=== PATIENT | male | born 1940 | race Caucasian/White ===

== ENCOUNTER → 2018-07-29 | Outpatient (CLI) | payer MEDICARE, BC ==
[2018-07-29 11:05] LABS: Albumin 3.7 g/dL (3.5-5.0); Calcium 8.5 mg/dL (8.4-10.2); Potassium 4.7 mmol/L (3.5-5.1); Total Bilirubin 1.3 mg/dL (0.2-1.3); Total Protein 6.1 g/dL (6.3-8.2)
--- NOTE | 2018-07-29 13:35 | CT ---
EXAMINATION TYPE: CT abdomen pelvis w con DATE OF EXAM: 07/29/2018 COMPARISON: None HISTORY: Unspecified abdominal pain CT DLP: 1430 mGycm CONTRAST: CT scan of the abdomen and pelvis is performed with Oral Contrast and with IV Contrast, patient injec mary with 100 ml mL of Isovue 300. FINDINGS: LUNG BASES-: No visible nodule. No infiltrate. Left basilar pleural thickening and small pleural eff usion. LIVER/GB: No calcified gallstones. No space occupying hepatic lesion. Biliary tree is of normal ca liber. PANCREAS: No inflammation. No distinct mass. SPLEEN: No splenic enlargement. No lesion seen. ADRENALS: No nodule. No thickening. KIDNEYS/BLADDER: No hydronephrosis. No nephrolithiasis. No distinct solid renal mass. Renal cysti c changes noted. Left renal cyst measuring 6.4 cm. Urinary bladder grossly unremarkable. BOWEL: Fixed hiatal hernia noted moderate in size. Normal appendix. Normal bowel caliber. No inflam mation. Sigmoid diverticulosis without diverticulitis. GENITAL ORGANS: No gross abnormality. LYMPH NODES: No greater than 1cm abdominal or pelvic lymph nodes are appreciated. AORTA: No significant abnormality. OSSEOUS STRUCTURES: Degenerative changes lumbar spine with a grade 1 retrolisthesis L2 on L3. OTHER: Left inguinal fat-containing hernia. IMPRESSION: 1. 5.0 x 3.9 cm fat-containing left inguinal hernia. 2. Moderate fixed hiatal hernia. 3. Left basilar pleural thickening and small effusion.
== END | disposition home or self-care (01) ==
LOC: RADCTMAIN 10:12
PROVIDERS: ATTEND Internal Medicine Cardiovascular Disease
DX: K40.90 Unilateral inguinal hernia, without obstruction or gangrene, not specified as recurrent (principal); K44.9 Diaphragmatic hernia without obstruction or gangrene; I10 Essential (primary) hypertension
CPT/HCPCS: 80053; 74177; 36415; Q9967

== ENCOUNTER → 2019-12-24 | Outpatient (CLI) | payer MEDICARE, BC ==
--- NOTE | 2019-12-25 17:36 | ECHOF ---
Referral Reason:I10 HTN, R09.89 Carotid Bruit MEASUREMENTS -------- HEIGHT: 180.3 cm WEIGHT: 99.8 kg BP: IVSd: 1.7 cm (0.6 - 1.1) LVIDd: 4.5 cm (3.9 - 5.3) LVPWd: 1.9 cm (0.6 - 1.1) IVSs: 2.4 cm LVIDs: 3.0 cm LVPWs: 1.5 cm RVIDd: 3.0 cm (< 3.3) LAESV Index (A-L): 31.80 ml/m Ao Diam: 3.4 cm (2.0 - 3.7) LA Diam: 4.3 cm (2.7 - 3.8) AV Cusp: 2.0 cm (1.5 - 2.6) EPSS: 0.9 cm MV E Luis Angel: 0.80 m/s MV DecT: 294 ms MV A Luis Angel: 1.09 m/s MV E/A Ratio: 0.73 RAP: 5.00 mmHg RVSP: 26.27 mmHg MV EF SLOPE: 57.00 mm/s (70 - 150) MV EXCURSION: 16.01 mm (> 18.000) FINDINGS -------- Sinus rhythm. This was a technically adequate study. The left ventricular size is normal. There is moderate concentric left ventricular hypertrophy. O verall left ventricular systolic function is normal with, an EF between 55 - 60 %. The diastolic fi lling pattern is normal for the age of the patient 14.88. The right ventricle is normal in size. LA is midly dilated 29-33ml/m2. The right atrial size is normal. Interatrial and interventricular septum intact. The aortic valve is trileaflet and appears structurally normal. Trace amount of aortic regurgitatio n. There is no evidence of aortic stenosis. Mild mitral regurgitation is present. Mild tricuspid regurgitation present. There is no evidence of pulmonary hypertension. The right v entricular systolic pressure, as measured by Doppler, is 26.27mmHg. Trace/mild (physiologic) pulmonic regurgitation. The aortic root size is normal. IVC Not well visulized. There is no pericardial effusion. CONCLUSIONS -------- 1. Sinus rhythm. 2. This was a technically adequate study. 3. The left ventricular size is normal. 4. There is moderate concentric left ventricular hypertrophy. 5. Overall left ventricular systolic function is normal with, an EF between 55 - 60 %. 6. The diastolic filling pattern is normal for the age of the patient 14.88 7. The right ventricle is normal in size. 8. LA is midly dilated 29-33ml/m2. 9. The right atrial size is normal. 10. Interatrial and interventricular septum intact. 11. The aortic valve is trileaflet and appears structurally normal. 12. Trace amount of aortic regurgitation. 13. There is no evidence of aortic stenosis. 14. Mild mitral regurgitation is present. 15. Mild tricuspid regurgitation present. 16. There is no evidence of pulmonary hypertension. 17. The right ventricular systolic pressure, as measured by Doppler, is 26.27mmHg. 18. Trace/mild (physiologic) pulmonic regurgitation. 19. The aortic root size is normal. 20. IVC Not well visulized. 21. There is no pericardial effusion. [employer]IN PLANT SWEATER OPERATOR: Roxanne Ramirez RDCS
--- NOTE | 2019-12-25 19:13 | US ---
EXAMINATION TYPE: US carotid duplex BILAT DATE OF EXAM: 12/24/2019 COMPARISON: NONE CLINICAL HISTORY: I10 HTN, R09.89 Carotid Bruit. EXAM MEASUREMENTS: RIGHT: Peak Systolic Velocity (PSV) cm/sec ----- Right CCA: 64.4 ----- Right ICA: 60.3 ----- Right ECA: 89.7 ICA/CCA ratio: 0.9 RIGHT: End Diastole cm/sec ----- Right CCA: 13.7 ----- Right ICA: 19.7 ----- Right ECA: 11.1 LEFT: Peak Systolic Velocity (PSV) cm/sec ----- Left CCA: 71.5 ----- Left ICA: 73.8 ----- Left ECA: 89.4 ICA/CCA ratio: 1.0 LEFT: End Diastole cm/sec ----- Left CCA: 15.3 ----- Left ICA: 26.1 ----- Left ECA: 13.5 VERTEBRALS (direction of flow): Right Vertebral: Antegrade Left Vertebral: Antegrade Rhythm: Normal Mild plaque, waveform analysis does not show significant stenosis of the proximal internal carotid ar teries. Grayscale, color Doppler, spectral Doppler imaging performed of the carotid arteries IMPRESSION: No hemodynamic significant stenosis of the proximal internal carotid arteries by Doppler criteria, an indirect measurement of carotid stenosis
== END | disposition home or self-care (01) ==
LOC: RADECHMAIN 16:13
PROVIDERS: ATTEND Internal Medicine Cardiovascular Disease
DX: I08.1 Rheumatic disorders of both mitral and tricuspid valves (principal); I10 Essential (primary) hypertension; R09.89 Other specified symptoms and signs involving the circulatory and respiratory systems
CPT/HCPCS: 93306; 93880

== ENCOUNTER → 2019-12-27 | Outpatient (CLI) | payer MEDICARE, BC ==
[2019-12-27 08:37] LABS: Basophils # (A) 0.1 k/uL (0-0.2); Basophils % (A) 2 %; Eosinophils # (A) 0.2 k/uL (0-0.7); Eosinophils % (A) 4 %; HGB 15.4 gm/dL (13.0-17.5); Lymphocytes # (A) 1.2 k/uL (1.0-4.8); Lymphocytes % (A) 26 %; MCH 34.8 pg (25.0-35.0); MCHC 32.9 g/dL (31.0-37.0); Macrocytosis Moderate; Mean Platelet Volume 7.9; Monocytes # (A) 0.3 k/uL (0-1.0); Monocytes % (A) 6 %; Neutrophils # (A) 2.7 k/uL (1.3-7.7); Neutrophils % (A) 58 %; Platelet Count 215 k/uL (150-450); RBC 4.43 m/uL (4.30-5.90); RDW 13.1 % (11.5-15.5); WBC 4.6 k/uL (3.8-10.6)
[2019-12-27 16:06] LABS: African American GFR (CKD) 55.8 (60.0-200.0); Albumin/Globulin Ratio 3.08 (1.60-3.17); BUN/Creat Ratio 10.71 Ratio (12.00-20.00); Calcium 8.2 mg/dL (8.7-10.3); Chol/HDL Ratio 2.54; Globulin 1.3 g/dL (1.6-3.3); LDL Cholesterol,Calculated 92.6 mg/dL (0.0-131.0); Non-African American GFR(CKD) 48.1 (60.0-200.0); Potassium 4.4 mmol/L (3.5-5.5); Total Protein 5.3 g/dL (6.2-8.2); VLDL Calculation 12.4 mg/dL (5.00-40.00)
== END ==
LOC: LABWHC1 07:10
PROVIDERS: ATTEND Internal Medicine Cardiovascular Disease
DX: R06.02 Shortness of breath (principal); R00.2 Palpitations
CPT/HCPCS: 36415; 80053; 80061; 84439; 84443; 84481; 85025

== ENCOUNTER → 2020-01-06 | Outpatient (CLI) | payer MEDICARE, BC ==
--- NOTE | 2020-01-06 15:59 | US ---
LOWER EXTREMITY VENOUS INSUFFICIENCY CLINICAL HISTORY: I87.2 venous insufficiency. SIDE PERFORMED: Bilateral 1) Color flow is present and patency is documented in the following vessels. No DVT or SVT is noted . EIV Common Femoral Vein Deep Femoral Vein Femoral Vein Popliteal Vein Proximal Calf Veins Greater Saph Vein Upper Small Saph Vein 2) There is venous reflux noted at the following venous levels: Right: EIV, CFV, mild in DFV Left: none IMPRESSION: Venous reflux within the right lower extremity as discussed above.
== END | disposition home or self-care (01) ==
LOC: RADUSMAIN 15:04
PROVIDERS: ATTEND Internal Medicine Cardiovascular Disease
DX: I87.8 Other specified disorders of veins (principal)
CPT/HCPCS: 93970

== ENCOUNTER → 2021-08-15 | Outpatient (CLI) | payer MEDICARE, BC ==
--- NOTE | 2021-08-15 11:27 | ECHOF ---
Referral Reason:I10 Essential hypertension; R01.1 Murmur; R06.02 MEASUREMENTS -------- HEIGHT: 180.3 cm WEIGHT: 99.8 kg BP: RVIDd: 3.2 cm (< 3.3) IVSd: 1.0 cm (0.6 - 1.1) LVIDd: 4.3 cm (3.9 - 5.3) LVPWd: 1.0 cm (0.6 - 1.1) IVSs: 1.8 cm LVIDs: 2.7 cm LVPWs: 1.6 cm LAESV Index (A-L): 17.64 ml/m Ao Diam: 3.5 cm (2.0 - 3.7) AV Cusp: 2.0 cm (1.5 - 2.6) LA Diam: 3.5 cm (2.7 - 3.8) MV EXCURSION: 17.180 mm (> 18.000) MV EF SLOPE: 80 mm/s (70 - 150) EPSS: 0.9 cm MV E Luis Angel: 0.89 m/s MV DecT: 242 ms MV A Luis Angel: 0.97 m/s MV E/A Ratio: 0.91 RAP: 5.00 mmHg RVSP: 16.30 mmHg FINDINGS -------- This was a technically difficult study with suboptimal views. The left ventricular size is normal. Left ventricular wall thickness is normal. Overall left vent ricular systolic function is normal with, an EF between 55 - 60 %. The diastolic filling pattern is normal for the age of the patient 13.67. The right ventricle is normal in size. The left atrial size is normal. Normal LA size by volume 22+/-6 ml/m2. The right atrial size is normal. xx ml of Lumason was utilized for enhancement of images. The aortic valve is trileaflet and appears structurally normal. The mitral valve is normal. There is trace mitral regurgitation. The tricuspid valve appears structurally normal. Trace tricuspid regurgitation present. Right aram tricular systolic pressure is normal at < 35 mmHg. There is no pulmonic regurgitation present. The aortic root size is normal. IVC Not well visulized. There is no pericardial effusion. CONCLUSIONS -------- 1. The left ventricular size is normal. 2. Left ventricular wall thickness is normal. 3. Overall left ventricular systolic function is normal with, an EF between 55 - 60 %. 4. The diastolic filling pattern is normal for the age of the patient 13.67 5. There is trace mitral regurgitation. 6. Trace tricuspid regurgitation present. 7. There is no pericardial effusion. STAFF ENGINEER: Roxi Altamirano RDCS
--- NOTE | 2021-08-15 11:53 | NM ---
EXAMINATION TYPE: NM stress cardiolite complete DATE OF EXAM: 08/15/2021 COMPARISON: NONE HISTORY: Murmur TECHNIQUE: After the intravenous administration of 10.1 mCi Tc 99m Sestamibi - Rest images obtained 60 minutes post injection. The patient exercised using a LORENA protocol and 1 minute prior to peak exercise was injected with 25.5 mCi Tc 99m Sestamibi - Stress images obtained 25 minutes post injecti on. FINDINGS: Targeted heart rate was achieved during performance of the study. Review of stress and rest SPECT derek ges demonstrates no distinct perfusion abnormality. Gated analysis shows normal wall motion with an estimated left ventricular ejection fraction of 64 %. IMPRESSION: No scintigraphic evidence for reversible ischemia
--- NOTE | 2021-08-15 14:10 | EST ---
EXERCISE STRESS DATE OF STUDY: 08/15/2021 AGE: 81 SEX: M HT: 5'11" WT: 220 lbs. PROTOCOL: Jonas STAGE: 3 DURATION OF EXERCISE: 8:41 HEART RATE REST: 54 BLOOD PRESSURE REST: 131/87 MAXIMUM HEART RATE ACHIEVED: 122 MAXIMUM BLOOD PRESSURE: 205/85 85% MPHR: 120 100% MPHR: 141 METS: 10.1 INDICATIONS: Chest pain. CLINICAL INFORMATION: STRESS DATA: Heart rate 54, pressure 131/87 mmHg. Baseline EKG showed sinus mechanism. The patient exercised on the treadmill according to Jonas protocol for a total of and 8 minutes and 41 seconds and achieved 10 of METS. Max heart rate was 112, which is about 87% of maximum predicted heart rate. Maximum blood pressure was 203/93 mmHg. Clinically the patient did not have any symptoms. The EKG did not show any significant ST or T-wave abnormalities concerning for ischemia. CONCLUSION: 1. Excellent exercise tolerance. 2. Normal EKG in response to exercise. MMODL / IJN: [id number] /
== END | disposition home or self-care (01) ==
LOC: RADNMMAIN 08:02
PROVIDERS: ATTEND Internal Medicine Cardiovascular Disease
DX: I08.1 Rheumatic disorders of both mitral and tricuspid valves (principal)
CPT/HCPCS: 93017; 78452; C8929; A9500; Q9950; 93306

== ENCOUNTER → 2022-05-20 | Outpatient (CLI) | payer MEDICARE, BC ==
--- NOTE | 2022-05-20 15:03 | CT ---
EXAMINATION TYPE: CT abdomen pelvis w con DATE OF EXAM: 05/20/2022 COMPARISON: CT dated 07/29/2018 HISTORY: Abdominal pain CT DLP: 2013 mGycm Automated exposure control for dose reduction was used. TECHNIQUE: Helical acquisition of images was performed from the lung bases through the pelvis. CONTRAST: Performed with Oral Contrast and with IV Contrast, patient injected with 80 mL of Isovue 300. FINDINGS: LUNG BASES: Bilateral basal peripheral pulmonary reticulations and minimal fibrotic changes. LIVER/GB: Nondistended gallbladder with suspected cholelithiasis, please correlate with ultrasound re sults. No definite hepatic focal lesion. PANCREAS: No significant abnormality is seen. SPLEEN: No significant abnormality is seen. ADRENALS: No significant abnormality is seen. KIDNEYS: Bilateral renal cysts without gross suspicious features. Bilateral perinephric fat stranding , nonspecific. FREE AIR: No free air is visualized. RETROPERITONEAL ADENOPATHY: None visualized REPRODUCTIVE ORGANS: No significant abnormality is seen URINARY BLADDER: Thickened urinary bladder wall with trabeculation which could be related to chronic urinary outflow obstruction however cystitis or underlying urothelial lesion cannot be excluded, ple ase correlate with urinalysis results. PELVIC ADENOPATHY: No pathologically enlarged pelvic lymph nodes. OSSEOUS STRUCTURES: Osteopenia. No gross aggressive bone lesion. BOWEL: Hiatal hernia containing the gastric fundus. Unremarkable remainder of the stomach, duodenum and small bowel. Scattered uncomplicated colonic diverticulosis. Moderate fecal loading of the colon. No evidence of acute appendicitis. OTHER: Left fat-containing inguinal hernia. Portion of the colon is seen at the towards the hernial n torie. Right inguinal density which could be related to previous inguinal hernia repair. Scattered mikael rial atherosclerotic calcifications. No sizable ascites. IMPRESSION: Hiatal hernia containing the gastric fundus. Left fat-containing inguinal hernia as described above. Other findings and recommendations as described above.
== END | disposition home or self-care (01) ==
LOC: RADCTMAIN 08:11
PROVIDERS: ATTEND Internal Medicine Cardiovascular Disease
DX: K44.9 Diaphragmatic hernia without obstruction or gangrene (principal); K40.30 Unilateral inguinal hernia, with obstruction, without gangrene, not specified as recurrent
CPT/HCPCS: 74177; Q9967 ×2

== ENCOUNTER → 2022-05-21 | Outpatient (CLI) | payer MEDICARE, BC ==
--- NOTE | 2022-05-21 13:38 | NM ---
EXAMINATION TYPE: NM stress cardiolite complete DATE OF EXAM: 05/21/2022 COMPARISON: Previous exam dated 08/15/2021 HISTORY: Essential hypertension TECHNIQUE: After the intravenous administration of 9.3 mCi Tc 99m Sestamibi - Rest images obtained 4 5 minutes post injection. The patient exercised using a LORENA protocol and 1 minute prior to peak e xercise was injected with 24.8 mCi Tc 99m Sestamibi - Stress images obtained 25 minutes post injectio n. FINDINGS: Targeted heart rate was achieved during performance of the study, patient achieved 85% of predicted m aximal heart rate. Review of stress and rest SPECT images demonstrates decreased uptake along the inf erior wall left ventricle on stress imaging extending into the apex, lateral wall with improved perfu flavio on rest images. Gated analysis shows normal wall motion with an estimated left ventricular ejec tion fraction of 70 %. IMPRESSION: Stress-induced left ventricular myocardial ischemia. Consider echocardiographic correlation for eleva mary ejection fraction
== END | disposition home or self-care (01) ==
LOC: RADNMMAIN 07:58
PROVIDERS: ATTEND Internal Medicine Cardiovascular Disease
DX: I10 Essential (primary) hypertension (principal); I25.9 Chronic ischemic heart disease, unspecified
CPT/HCPCS: 93017; 78452; A9500

== ENCOUNTER → 2022-06-07 | Outpatient (CLI) | payer MEDICARE, BC ==
--- NOTE | 2022-06-07 18:45 | CA ---
Transthoracic Echo Report Name: Bo Duran Age: 81 Gender: M : 1940 Exam Date: 06/07/2022 15:04 Exam Location: [place] [facility] Ht (in): 71 Wt (lb): 212 Ordering Physician: Trenton Flynn DO Attending/Referring Phys: [id number], Gee Physical Fitness Trainer Roxi Ortiz, [facility] Procedure CPT: Indications: R01.1 Heart mummur Cardiac Hx: Technical Quality: Good Contrast 1: Total Dose (mL): Contrast 2: Total Dose (mL): MEASUREMENTS (Male / Female) Normal Values 2D ECHO LV Diastolic Diameter PLAX 3.8 cm 4.2 - 5.9 / 3.9 - 5.3 cm LV Systolic Diameter PLAX 2.0 cm IVS Diastolic Thickness 1.0 cm 0.6 - 1.0 / 0.6 - 0.9 cm LVPW Diastolic Thickness 1.0 cm 0.6 - 1.0 / 0.6 - 0.9 cm LV Relative Wall Thickness 0.5 RV Internal Dim ED PLAX 2.7 cm LA Volume 39.1 cm??? 18 - 58 / 22 - 52 cm??? M-MODE Aortic Root Diameter MM 3.7 cm LA Systolic Diameter MM 3.6 cm LA Ao Ratio MM 1.0 MV E Point Septal Separation 1.2 cm AV Cusp Separation MM 2.2 cm DOPPLER AV Peak Velocity 130.3 cm/s AV Peak Gradient 6.8 mmHg AI Peak Velocity 209.9 cm/s AI Peak Gradient 17.6 mmHg AI Pressure Half Time 909.1 ms MV Area PHT 2.8 cm??? Mitral E Point Velocity 102.8 cm/s Mitral A Point Velocity 107.4 cm/s Mitral E to A Ratio 1.0 MV Deceleration Time 268.6 ms MV E' Velocity 5.8 cm/s Mitral E to MV E' Ratio 17.6 TR Peak Velocity 203.6 cm/s TR Peak Gradient 16.6 mmHg Right Ventricular Systolic Press 21.6 mmHg FINDINGS Left Ventricle Normal left ventricular size, wall thickness, systolic function with no obvious regional wall motion abnormalities. The ejection fraction is visually estimated at 55-60 %. Grade 1 diastolic dysfunction. Right Ventricle The right ventricle is normal in size and function. Right Atrium The right atrium is normal in size. Left Atrium The left atrium is normal in size. Mitral Valve Structurally normal mitral valve without significant stenosis or prolapse. There is trace mitral regurgitation. Aortic Valve Structurally normal aortic valve without significant sclerosis or stenosis. There is trace aortic regurgitation. Tricuspid Valve Structurally normal tricuspid valve without significant stenosis. Pulmonary artery systolic pressure is normal. Mild tricuspid regurgitation. Pulmonic Valve Structurally normal pulmonic valve without significant stenosis. There is no pulmonic regurgitation. Pericardium Normal pericardium without effusion. Aorta Normal aortic root dimension. CONCLUSIONS Normal left ventricular dimension and systolic function Previewed by: Dr. Shaheen Villalobos MD (Electronically Signed) Final Date: 07 June 2022 18:44
== END | disposition home or self-care (01) ==
LOC: RADECHMAIN 14:55
PROVIDERS: ATTEND Internal Medicine Cardiovascular Disease
DX: I08.3 Combined rheumatic disorders of mitral, aortic and tricuspid valves (principal)
CPT/HCPCS: 93306

== ENCOUNTER → 2023-07-10 | Outpatient (CLI) | payer MEDICARE, BC ==
--- NOTE | 2023-07-10 08:47 | US ---
EXAMINATION TYPE: US abdomen complete DATE OF EXAM: 07/10/2023 COMPARISON: CT 05/20/2022 CLINICAL INDICATION: Male, 83 years old with history of K74.60 UNSPECIFIED CIRRHOSIS OF LIVER; Abnorm al labs, GB surgically removed TECHNIQUE: Multiple sonographic images of the abdomen are obtained. FINDINGS: EXAM MEASUREMENTS: Liver Length: 15.5 cm CBD: 0.6 cm Spleen: 7.9 cm Right Kidney: 11.1 x 6.1 x 5.0 cm Left Kidney: 11.3 x 6.0 x 4.9 cm CONFIGURATION MANAGEMENT MANAGER NOTES: Pancreas: Obscured by bowel gas Liver: Visualized portions slightly heterogeneous, left lobe difficult to visualize Gallbladder: Surgically absent CBD: wnl Spleen: Difficult to visualize, limited views show no abnormality Right Kidney: Possible cyst mid= 2.1 x 1.9 x 1.5 cm Left Kidney: Multicystic, largest mid/lateral= 5.6 x 4.5 x 5.5 cm Upper IVC: Difficult to visualize Abd Aorta: Proximal portion gassed out, mid and distal portions wnl The pancreas is obscured by overlying bowel gas. Limited visualization of the liver which demonstrate s a slightly heterogenous appearance without definitive focal lesion identified. Noncirrhotic morphol ogy. Gallbladder is surgically absent. Common bile ducts within normal limits. Limited views of the s pleen demonstrate no obvious adenopathy. The upper IVC is difficult to visualize. The mid and distal portions of the visualized abdominal aorta are within normal limits. The proximal portion is obscured by overlying bowel gas. Bilateral renal cysts identified. No hydronephrosis or nephrolithiasis. No s olid mass identified. Corticomedullary differentiation is maintained bilaterally. IMPRESSION: Limited examination due to overlying bowel gas. 1. No acute process. 2. Postcholecystectomy changes. 3. Bilateral renal cysts. 4. Noncirrhotic hepatic morphology.
== END | disposition home or self-care (01) ==
LOC: RADUSWWP 08:08
PROVIDERS: ATTEND Internal Medicine Cardiovascular Disease
DX: K74.60 Unspecified cirrhosis of liver (principal); N28.1 Cyst of kidney, acquired; Z90.49 Acquired absence of other specified parts of digestive tract
CPT/HCPCS: 76700

== ENCOUNTER → 2023-07-14 | Outpatient (CLI) | payer MEDICARE, BC ==
--- NOTE | 2023-07-15 09:30 | NM ---
EXAMINATION TYPE: NM parathyroid w/spect DATE OF EXAM: 07/14/2023 COMPARISON: NONE CLINICAL INDICATION: Male, 83 years old with history of E21.3 HYPERPARATHYROIDISM; TECHNIQUE: Following administration of 24.5 mCi Tc99m Sestamibi. Anterior projection images of the neck and ches t were obtained 10 minutes and 3.25 hours post injection. SPECT images of the neck and chest were ob tained and reconstructed in three axes. FINDINGS: Thyroid tracer washout: Delayed images demonstrate near-complete tracer washout from the thyroid. Parathyroid uptake: None. The two-hour delayed images do not demonstrate any focal abnormal persisten t uptake in the region of the parathyroid glands to suggest parathyroid adenoma. Normal uptake: There is physiological tracer uptake in the myocardium, liver, salivary glands, and th yroid gland. IMPRESSION: Normal parathyroid imaging study. No evidence for mediastinal uptake to suggest mediastinal parathyro id adenoma
== END | disposition home or self-care (01) ==
LOC: RADNMMAIN 10:58
PROVIDERS: ATTEND Internal Medicine Cardiovascular Disease
DX: E21.3 Hyperparathyroidism, unspecified (principal); K74.60 Unspecified cirrhosis of liver; R10.9 Unspecified abdominal pain
CPT/HCPCS: 78071; A9500

== ENCOUNTER → 2023-08-20 | Outpatient (CLI) | payer MEDICARE, BC ==
[2023-08-20 10:39] LABS: African American GFR (CKD) 41 (>60 ml/min/1.73 sqM); Blood Urea Nitrogen 27 mg/dL (9-20); Non-African American GFR(CKD) 36 (>60 ml/min/1.73 sqM)
--- NOTE | 2023-08-20 12:24 | CT ---
EXAMINATION TYPE: CT abdomen pelvis wo con DATE OF EXAM: 08/20/2023 COMPARISON: 05/20/2022. HISTORY: abdominal pain x3 months CT DLP: 1076 mGycm Automated exposure control for dose reduction was used. TECHNIQUE: Helical acquisition of images was performed from the lung bases through the pelvis. FINDINGS: LOWER CHEST : The visualized lung bases are clear. There are no pleural or pericardial effusions. ABDOMEN: Liver and Biliary system: Normal. Adrenal glands: Normal. Kidneys and ureters: There is a 2.4 cm upper pole parapelvic cyst on the right side. There are no ur eteral stones or hydronephrosis. There are several cysts seen within the left kidney with the largest in the upper pole measuring 6.5 cm in diameter. There are no renal stones, ureteral stones or hydron ephrosis on this side. Spleen: Normal. Pancreas: Normal. Gallbladder: Surgically absent. Lymph nodes, Peritoneum and mesentery: There is no mesenteric or retroperitoneal lymphadenopathy. Gastrointestinal tract: There are no dilated loops of bowel or free intraperitoneal air. . The appe ndix is normal. There is mild sigmoid colonic diverticulosis without evidence of diverticulitis. Ther e is a small sliding hiatal hernia. Aorta/IVC: There is mild vascular calcification seen throughout the abdominal aorta without evidenc e of aneurysmal dilation. IVC normal. Abdominal wall: Normal. PELVIS: Fluid: There is no free fluid in the pelvis. Lymph Nodes: There is no pelvic or inguinal lymphadenopathy.. Urinary bladder: Normal. BONES: There are no osseous destructive lesions.. ADDITIONAL SIGNIFICANT FINDINGS: None. IMPRESSION: 1. No renal stones or hydronephrosis.. 2. No bowel obstruction or appendicitis. 3. Diverticulosis without evidence of diverticulitis. 4. Small hiatal hernia.
== END | disposition home or self-care (01) ==
LOC: RADCTMAIN 10:00
PROVIDERS: ATTEND Internal Medicine Cardiovascular Disease
DX: K44.9 Diaphragmatic hernia without obstruction or gangrene (principal); K57.30 Diverticulosis of large intestine without perforation or abscess without bleeding; I99.8 Other disorder of circulatory system; K74.60 Unspecified cirrhosis of liver; R63.4 Abnormal weight loss; R10.9 Unspecified abdominal pain; R50.9 Fever, unspecified
CPT/HCPCS: 36415; 74176; 82565; 84520

== ENCOUNTER → 2024-06-30 | Outpatient (CLI) | payer MEDICARE, BC ==
--- NOTE | 2024-06-30 18:57 | CA ---
Transthoracic Echo Report Name: Bo Duran Age: 84 Gender: M : 1940 Exam Date: 06/30/2024 15:37 Exam Location: [place] [facility] Ht (in): 71 Wt (lb): 195 Ordering Physician: Trenton Flynn DO Attending/Referring Phys: [id number], Gee Coin Machine Service Repairer Ruth Ann Grant, RD Procedure CPT: Indications: R01.1 CARDIAC MURMUR, UNSPECIFIED Cardiac Hx: Technical Quality: Fair Contrast 1: Total Dose (mL): Contrast 2: Total Dose (mL): MEASUREMENTS (Male / Female) Normal Values 2D ECHO LV Diastolic Diameter PLAX 4.6 cm 4.2 - 5.9 / 3.9 - 5.3 cm LV Systolic Diameter PLAX 1.8 cm IVS Diastolic Thickness 1.1 cm 0.6 - 1.0 / 0.6 - 0.9 cm LVPW Diastolic Thickness 1.2 cm 0.6 - 1.0 / 0.6 - 0.9 cm LV Relative Wall Thickness 0.5 RV Internal Dim ED PLAX 2.0 cm LA Systolic Diameter LX 4.5 cm 3.0 - 4.0 / 2.7 - 3.8 cm LV Diastolic Volume MOD BP 78.2 cm??? 67 - 155 / 56 - 104 cm??? LV Systolic Volume MOD BP 31.5 cm??? - 58 / 19 - 49 cm??? LV Ejection Fraction MOD BP 59.7 % >= 55 % LV Cardiac Index MOD BP 1896.1 cm???/min???m??? LV Diastolic Volume MOD 4C 98.8 cm??? LV Systolic Volume MOD 4C 38.9 cm??? LV Ejection Fraction MOD 4C 60.6 % LV Cardiac Index MOD 4C 2429.6 cm???/min???m??? LV Diastolic Length 4C 9.0 cm LV Systolic Length 4C 7.6 cm LV Diastolic Volume MOD 2C 55.8 cm??? LV Systolic Volume MOD 2C 21.6 cm??? LV Ejection Fraction MOD 2C 61.3 % LV Cardiac Index MOD 2C 1389.0 cm???/min???m??? LV Diastolic Length 2C 8.1 cm LV Systolic Length 2C 6.4 cm LA Volume 59.9 cm??? 18 - 58 / 22 - 52 cm??? LA Volume Index 28.3 cm???/m??? 16 - 28 cm???/m??? M-MODE Aortic Root Diameter MM 3.3 cm LA Systolic Diameter MM 3.4 cm LA Ao Ratio MM 1.0 AV Cusp Separation MM 1.9 cm DOPPLER AV Peak Velocity 143.8 cm/s AV Peak Gradient 8.3 mmHg AV Mean Velocity 105.5 cm/s AV Mean Gradient 4.9 mmHg AV Velocity Time Integral 27.7 cm AI Peak Velocity 211.9 cm/s AI Peak Gradient 18.0 mmHg AI Pressure Half Time 844.6 ms LVOT Peak Velocity 113.7 cm/s LVOT Peak Gradient 5.2 mmHg LVOT Velocity Time Integral 24.3 cm MV Area PHT 3.2 cm??? Mitral E Point Velocity 81.0 cm/s Mitral A Point Velocity 102.6 cm/s Mitral E to A Ratio 0.8 MV Deceleration Time 234.0 ms TR Peak Velocity 195.7 cm/s TR Peak Gradient 15.3 mmHg FINDINGS Left Ventricle Left ventricular ejection fraction is estimated at 60-65 %. Mildly increased septal wall thickness. Normal left ventricular wall motion. No obvious regional wall motion abnormalities. Left ventricular cavity size normal. Right Ventricle Normal right ventricular size and function. Right ventricular systolic pressure within normal limits. Right Atrium Normal right atrial size. Left Atrium Mildly increased left atrial diameter. Mildly increased left atrial volume. Mitral Valve Structurally normal mitral valve. Mild mitral regurgitation. No mitral stenosis. Aortic Valve Trileaflet aortic valve. No aortic stenosis. Mild aortic regurgitation. Tricuspid Valve Structurally normal tricuspid valve. Mild tricuspid regurgitation. No tricuspid stenosis. Pulmonic Valve Structurally normal pulmonic valve. Trace pulmonic regurgitation. Pericardium No pericardial or pleural effusion. Aorta Normal size aortic root and proximal ascending aorta. CONCLUSIONS Diagnosis: Cardiac murmur Preserved LV size and systolic function Preserved RV size and systolic function Mild mitral and mild aortic regurgitation mild tricuspid regurgitation Previewed by: Dr. Terry Napier MD (Electronically Signed) Final Date: 30 June 2024 18:56
== END | disposition home or self-care (01) ==
LOC: RADECHMAIN 15:24
PROVIDERS: ATTEND Internal Medicine Cardiovascular Disease
DX: R01.1 Cardiac murmur, unspecified (principal); I08.2 Rheumatic disorders of both aortic and tricuspid valves; I99.8 Other disorder of circulatory system; K74.60 Unspecified cirrhosis of liver; R53.83 Other fatigue; E55.9 Vitamin D deficiency, unspecified; E07.9 Disorder of thyroid, unspecified; E10.9 Type 1 diabetes mellitus without complications
CPT/HCPCS: 93306